=== PATIENT | female | born 1985 | race Caucasian/White ===

== ENCOUNTER 2017-09-11 09:33 | Emergency (ER) | payer MEDICAID ==
[~2017-09-11] VITALS: Ht 157.5 cm; Wt 65.9 kg
[~2017-09-11 09:33] MED LIST: ACET1TAB12 PO; IBUP-1985 PO
[2017-09-11 09:46] VITALS: BP 139/85
[2017-09-11] MEDS ORDERED: ketorolac trometh inj. 60 MG/2 ML VIAL IM ONE (09:55)
[2017-09-11] MEDS ORDERED: ORPH100T2 PO (09:58)
[2017-09-11] MEDS ORDERED: IBUP-1984 PO (09:58)
[2017-09-11] MEDS ORDERED: HYDR-565 PO (09:58)
== END 2017-09-11 10:21 | disposition home or self-care (01) ==
LOC: ER 09:35
DX: S16.1XXA Strain of muscle, fascia and tendon at neck level, initial encounter (principal); S39.012A Strain of muscle, fascia and tendon of lower back, initial encounter; V43.02XA Car driver injured in collision with other type car in nontraffic accident, initial encounter; Y93.89 Activity, other specified; Y92.481 Parking lot as the place of occurrence of the external cause; Y99.8 Other external cause status
CPT/HCPCS: 96372; 99283; J1885

== ENCOUNTER 2024-08-28 14:12 | Outpatient (CLI) | payer MEDICAID ==
[~2024-08-28 14:12] MED LIST changes: +ORPH100T4 PO
== END 2024-08-28 23:59 | disposition home or self-care (01) ==
LOC: MRI02 14:12
PROVIDERS: ATTEND Nurse Practitioner Adult Health
DX: M50.123 Cervical disc disorder at C6-C7 level with radiculopathy (principal); M47.22 Other spondylosis with radiculopathy, cervical region; M48.02 Spinal stenosis, cervical region
CPT/HCPCS: 72141